=== PATIENT | male | born 1975 | race Caucasian/White ===

== ENCOUNTER 2022-03-07 15:42 | Emergency (ER) | payer MEDICAID ==
[~2022-03-07] VITALS: Ht 182.9 cm; Wt 123.4 kg
[~2022-03-07 15:42] MED LIST: ATROVENT INH; FLOVENT INH; FLUT1DIS3 IH; PROVENTIL INH
--- NOTE | 2022-03-07 19:00 | NUR ---
Patient triaged and placed in waiting room. VSS and patient appears in no acute distress at this time.awaiting available bed, and MD notified of need for MSE.
[2022-03-07 19:05] VITALS: BP_SYST 136
--- NOTE | 2022-03-07 19:25 | NUR ---
call pt name in the WR.no answer.
--- NOTE | 2022-03-07 19:30 | NUR ---
Patient left without being seen.
== END 2022-03-07 19:30 | disposition left against medical advice (07) ==
LOC: SED 15:42
DX: R06.02 Shortness of breath (principal); Z53.21 Procedure and treatment not carried out due to patient leaving prior to being seen by health care provider
CPT/HCPCS: 71045